=== PATIENT | male | born 1980 | race Two or more races ===

== ENCOUNTER 2022-01-08 17:23 | Inpatient (IN) | payer MEDICAID ==
[~2022-01-08] VITALS: Ht 167.6 cm; Wt 81.8 kg
[2022-01-08] MEDS ORDERED: ondansetron/PF 4mg/2ml inj IV ONE (17:35)
[2022-01-08 17:54] LABS: CLARITY,URINE CLEAR (Clear); COLOR,URINE YELLOW (Yellow); GLUCOSE, URINE NEGATIVE (Neg); KETONES,URINE TRACE mg/dl (Neg); LEUKOCYTE ESTERASE ,URINE NEGATIVE (Neg); NITRITES, URINE NEGATIVE (Neg); OCCULT BLOOD,URINE SMALL (Neg); PH,URINE 5.5 (4.8-8.0); PROTEIN,URINE 100 mg/dl (Neg); UROBILINOGEN,URINE 0.2 E.U/dL (0.2-1.0)
[2022-01-08 17:54] LABS: BASOPHILS # (AUTO) 0.1 X10'3 (0-0.2); EOSINOPHILS % (AUTO) 0.8 % (0-6); HEMATOCRIT 44.7 % (42.0-52.0); HEMOGLOBIN 15.1 g/dl (14.0-17.9); LYMPHOCYTES # (AUTO) 1.7 X10'3 (1.1-4.8); MEAN CORPUSCULAR HEMOGLOBIN 31.2 PG (27.0-31.0); MEAN CORPUSCULAR HGB CONC 33.8 g/dL (33.0-36.5); MEAN CORPUSCULAR VOLUME 92.4 FL (78-98); MEAN PLATELET VOLUME 7.3 FL (7.4-10.4); MONOCYTES # (AUTO) 0.6 X10'3 (0-0.9); MONOCYTES % (AUTO) 10.3 % (2-12); NEUTROPHILS # (AUTO) 3.3 X10'3 (1.8-7.7); NEUTROPHILS % (AUTO) 57.9 % (42-75); PLATELET COUNT 198 X10'3 (140-440); RED BLOOD COUNT 4.84 X10'6 (4.70-6.10); RED CELL DISTRIBUTION WIDTH 15.2 % (11.5-14.5); WHITE BLOOD COUNT 5.7 X10'3 (4.5-11.0)
[2022-01-08 17:58] LABS: UA COLLECTION TYPE FOLEY CATH
[2022-01-08 17:59] LABS: BACTERIA,URINE NONE SEEN /HPF (Neg); MUCUS STRANDS FEW /LPF (Neg); RBC,URINE 0-2 /HPF (0-2); SQUAMOUS EPITHELIAL CELL,UR NONE SEEN /LPF (FEW); WBC,URINE 0-4 /HPF (0-4)
[2022-01-08 18:08] LABS: ALANINE AMINOTRANSFERASE 118 U/L (12-78); ALBUMIN 3.6 G/DL (3.4-5.0); ALBUMIN/GLOBULIN RATIO 0.9 (1.1-1.5); ALKALINE PHOSPHATASE 140 IU/L (46-116); ANION GAP 8 (8-16); ASPARTATE AMINO TRANSFERASE 124 U/L (10-37); BILIRUBIN,TOTAL 0.7 MG/DL (0.1-1.0); BLOOD UREA NITROGEN 9 MG/DL (7-18); CALCIUM 7.6 MG/DL (8.5-10.1); CHLORIDE 108 MMOL/L (99-107); GLUCOSE 139 MG/DL (70-104); POTASSIUM 3.4 MMOL/L (3.5-5.1); SODIUM 145 MMOL/L (135-145); TOTAL CARBON DIOXIDE 28.6 MMOL/L (24-32); TOTAL PROTEIN 7.6 G/DL (6.4-8.2); eGFR > 90 ML/MIN
[2022-01-08 18:08] LABS: URINE AMPHETAMINE SCREEN NEGATIVE (Neg); URINE BARBITUATE SCREEN NEGATIVE (Neg); URINE BENZODIAZEPINES SCREEN NEGATIVE (Neg); URINE CANNABINOID SCREEN POSITIVE (Neg); URINE COCAINE SCREEN NEGATIVE (Neg); URINE METHADONE SCREEN NEGATIVE (Neg); URINE OPIATE SCREEN NEGATIVE (Neg); URINE PHENCYCLIDINE SCREEN NEGATIVE (Neg)
[2022-01-08] MEDS ORDERED: magnesium Cl slow-release 64mg tablet PO PRN (19:30)
[2022-01-08] MEDS ORDERED: LORazepam 2 mg/ml vial IV PRN (19:30)
[2022-01-08] MEDS ORDERED: acetaminophen 325mg tablet PO PRN ×2 (19:30)
[2022-01-08] MEDS ORDERED: haloperidol 5mg tablet PO PRN (19:30)
[2022-01-08] MEDS ORDERED: POTASSIUM BICARB 20meq eff tab 20 MEQ TABLET.EFF PO PRN (19:30)
[2022-01-08] MEDS ORDERED: potassium CL 10mEq/100ml bag 100 ML IV PRN (19:30)
[2022-01-08] MEDS ORDERED: magnesium 4gm in 100ml NS 100 ML IV PRN (19:30)
[2022-01-08] MEDS ORDERED: magnesium 2GM in 50ml NS 50 ML IV PRN (19:30)
[2022-01-08] MEDS ORDERED: haloperidol lactate 5mg/ml inj IM PRN (19:30)
[2022-01-08] MEDS ORDERED: ondansetron/PF 4mg/2ml inj IV PRN (19:30)
[2022-01-08] MEDS: folic acid 1mg tablet PO SCH (19:38)
[2022-01-08] MEDS: thiamine 100mg tablet PO SCH (19:39)
[2022-01-08] MEDS: K and/or MAG REPLACEMENT MC SCH (20:00)
[2022-01-08] MEDS: normal saline 1000ml 1,000 ML IV SCH (20:00)
[2022-01-08] MEDS ORDERED: temazepam 15mg capsule PO PRN (21:00)
[2022-01-08] MEDS: heparin, porcine 5000 units/ml vial SQ SCH (23:26)
[2022-01-09] MEDS: normal saline 1000ml 1,000 ML IV SCH ×2 (06:32→16:06)
[2022-01-09] MEDS: multivitamins, therapeutics tablet PO SCH (07:55)
[2022-01-09] MEDS: thiamine 100mg tablet PO SCH (07:58)
[2022-01-09] MEDS: heparin, porcine 5000 units/ml vial SQ SCH ×2 (08:00→20:06)
[2022-01-09] MEDS: K and/or MAG REPLACEMENT MC SCH ×2 (08:00→20:00)
[2022-01-09] MEDS: folic acid 1mg tablet PO SCH (08:00)
[2022-01-09 09:23] LABS: BASOPHILS % (AUTO) 0.7 % (0-1); EOSINOPHILS # (AUTO) 0.1 X10'3 (0-0.9); HEMATOCRIT 42.5 % (42.0-52.0); HEMOGLOBIN 14.4 g/dl (14.0-17.9); LYMPHOCYTES # (AUTO) 1.5 X10'3 (1.1-4.8); LYMPHOCYTES % (AUTO) 22.3 % (21-51); MEAN CORPUSCULAR HGB CONC 33.9 g/dL (33.0-36.5); MEAN CORPUSCULAR VOLUME 91.6 FL (78-98); MEAN PLATELET VOLUME 8.2 FL (7.4-10.4); MONOCYTES # (AUTO) 0.6 X10'3 (0-0.9); MONOCYTES % (AUTO) 9.2 % (2-12); NEUTROPHILS # (AUTO) 4.5 X10'3 (1.8-7.7); NEUTROPHILS % (AUTO) 66.8 % (42-75); PLATELET COUNT 187 X10'3 (140-440); RED BLOOD COUNT 4.64 X10'6 (4.70-6.10); RED CELL DISTRIBUTION WIDTH 15.3 % (11.5-14.5); WHITE BLOOD COUNT 6.8 X10'3 (4.5-11.0)
[2022-01-09 09:33] LABS: ALANINE AMINOTRANSFERASE 105 U/L (12-78); ALBUMIN 3.3 G/DL (3.4-5.0); ALBUMIN/GLOBULIN RATIO 0.9 (1.1-1.5); ALKALINE PHOSPHATASE 119 IU/L (46-116); AMYLASE 80 U/L (25-115); ANION GAP 13 (8-16); ASPARTATE AMINO TRANSFERASE 106 U/L (10-37); BILIRUBIN,TOTAL 0.9 MG/DL (0.1-1.0); BLOOD UREA NITROGEN 8 MG/DL (7-18); BUN/CREATININE RATIO 12.1 (5.4-32.0); CALCIUM 8.2 MG/DL (8.5-10.1); CHLORIDE 105 MMOL/L (99-107); CREATININE 0.66 MG/DL (0.60-1.10); GLUCOSE 68 MG/DL (70-104); LIPASE 226 U/L (73-393); MAGNESIUM 1.8 MG/DL (1.5-2.4); PHOSPHORUS 2.3 MG/DL (2.3-4.5); POTASSIUM 3.6 MMOL/L (3.5-5.1); SODIUM 145 MMOL/L (135-145); TOTAL PROTEIN 7.1 G/DL (6.4-8.2); eGFR > 90 ML/MIN
[2022-01-09] MEDS ORDERED: LISI10TA27 PO (11:19)
[2022-01-09] MEDS ORDERED: ATOR10TA70 PO (11:19)
--- NOTE | 2022-01-10 00:01 | NUR ---
Patient in room ED 5. I have received report from EUGENE WOODRUFF RN and had the opportunity to ask questions and assume patient care. Addendum: 01/10/22 at 0002 by Susan Mccrary RN Amended: Links added.
--- NOTE | 2022-01-10 00:05 | NUR ---
pt arriived to the floor in wheel chair tolerated well. vitals taken.
[2022-01-10 00:15] VITALS: BP 165/93
[2022-01-10] MEDS: normal saline 1000ml 1,000 ML IV SCH ×3 (00:33→21:30)
[2022-01-10] MEDS: LORazepam 1 MG tablet PO PRN ×2 (00:33→20:42)
[2022-01-10 02:00] VITALS: BP 167/98
[2022-01-10 06:28] LABS: BASOPHILS % (AUTO) 0.7 % (0-1); EOSINOPHILS % (AUTO) 1.2 % (0-6); HEMOGLOBIN 14.6 g/dl (14.0-17.9); LYMPHOCYTES # (AUTO) 1.2 X10'3 (1.1-4.8); MEAN CORPUSCULAR HEMOGLOBIN 31.4 PG (27.0-31.0); MEAN CORPUSCULAR HGB CONC 34.8 g/dL (33.0-36.5); MEAN CORPUSCULAR VOLUME 90.3 FL (78-98); MEAN PLATELET VOLUME 8.1 FL (7.4-10.4); MONOCYTES # (AUTO) 0.7 X10'3 (0-0.9); MONOCYTES % (AUTO) 18.6 % (2-12); NEUTROPHILS # (AUTO) 1.8 X10'3 (1.8-7.7); NEUTROPHILS % (AUTO) 47.5 % (42-75); PLATELET COUNT 175 X10'3 (140-440); RED BLOOD COUNT 4.65 X10'6 (4.70-6.10); RED CELL DISTRIBUTION WIDTH 14.5 % (11.5-14.5); WHITE BLOOD COUNT 3.9 X10'3 (4.5-11.0)
--- NOTE | 2022-01-10 06:33 | NUR ---
Problems reprioritized. Patient report given, questions answered & plan of care reviewed with BRIE WEAVER. Addendum: 01/10/22 at 0633 by Susan Mccrary RN Amended: Links added.
[2022-01-10 06:45] LABS: ALANINE AMINOTRANSFERASE 77 U/L (12-78); ALBUMIN 3.1 G/DL (3.4-5.0); ALBUMIN/GLOBULIN RATIO 0.8 (1.1-1.5); ALKALINE PHOSPHATASE 110 IU/L (46-116); AMYLASE 76 U/L (25-115); ANION GAP 7 (8-16); ASPARTATE AMINO TRANSFERASE 66 U/L (10-37); BILIRUBIN,TOTAL 2.3 MG/DL (0.1-1.0); BLOOD UREA NITROGEN 7 MG/DL (7-18); BUN/CREATININE RATIO 12.5 (5.4-32.0); CALCIUM 8.4 MG/DL (8.5-10.1); CHLORIDE 101 MMOL/L (99-107); CREATININE 0.56 MG/DL (0.60-1.10); GLUCOSE 87 MG/DL (70-104); LIPASE 286 U/L (73-393); MAGNESIUM 1.6 MG/DL (1.5-2.4); PHOSPHORUS 2.3 MG/DL (2.3-4.5); POTASSIUM 3.3 MMOL/L (3.5-5.1); SODIUM 137 MMOL/L (135-145); TOTAL CARBON DIOXIDE 28.8 MMOL/L (24-32); TOTAL PROTEIN 6.8 G/DL (6.4-8.2); eGFR > 90 ML/MIN
[2022-01-10] MEDS: K and/or MAG REPLACEMENT MC SCH ×2 (08:00→20:00)
[2022-01-10] MEDS: lisinopril 10 MG tablet PO SCH (09:24)
[2022-01-10] MEDS: multivitamins, therapeutics tablet PO SCH (09:24)
[2022-01-10] MEDS: thiamine 100mg tablet PO SCH (09:24)
[2022-01-10] MEDS: folic acid 1mg tablet PO SCH (09:24)
[2022-01-10] MEDS: atorvastatin 10mg tablet PO SCH (09:24)
[2022-01-10] MEDS: heparin, porcine 5000 units/ml vial SQ SCH ×2 (09:25→20:41)
[2022-01-10] MEDS: POTASSIUM BICARB 20meq eff tab 20 MEQ TABLET.EFF PO PRN ×2 (09:25→22:12)
[2022-01-10 10:04] LABS: TOTAL CELLS COUNTED 100
[2022-01-10 10:05] LABS: LARGE PLATELETS FEW; PLATELET ESTIMATE NORMAL
[2022-01-10 18:00] VITALS: BP 145/101
--- NOTE | 2022-01-10 19:14 | NUR ---
Patient in room U 3023. I have received report from BRIE WEAVER and had the opportunity to ask questions and assume patient care. Addendum: 01/10/22 at 1915 by Susan Mccrary RN Amended: Links added.
--- NOTE | 2022-01-10 19:56 | NUR ---
Pt aox4, sleeping on and off throughout the day. IVF infusing. Pt with good appetite for meals. denies pain, numbness, tingling. all pulses palp. skin CDI. denies hallucinations visually and auditorily. denies SI. no tremors noted and denies anxiety. some hyperness noted. BG check wnl. effer k given 40mEq. all needs met in real time. Pt wants to go home and almost left AMA. pt educated on benefits of staying and agreeable to stay one more night. friends/visitors at bedside encouraging additional night stay as well. All needs met in real time.
[2022-01-10] MEDS ORDERED: atorvastatin 10mg tablet PO SCH (20:00)
[2022-01-10] MEDS ORDERED: lisinopril 10 MG tablet PO SCH (20:00)
[2022-01-10 22:00] VITALS: BP 136/92
--- NOTE | 2022-01-11 | NUR ---
resting without changes.
[2022-01-11 02:00] VITALS: BP 92/37
[2022-01-11] MEDS: normal saline 1000ml 1,000 ML IV SCH (03:54)
[2022-01-11 06:25] LABS: BASOPHILS % (AUTO) 0.8 % (0-1); EOSINOPHILS # (AUTO) 0.1 X10'3 (0-0.9); EOSINOPHILS % (AUTO) 1.4 % (0-6); HEMATOCRIT 43.2 % (42.0-52.0); HEMOGLOBIN 14.7 g/dl (14.0-17.9); LYMPHOCYTES # (AUTO) 1.3 X10'3 (1.1-4.8); LYMPHOCYTES % (AUTO) 33.9 % (21-51); MEAN CORPUSCULAR VOLUME 91.1 FL (78-98); MEAN PLATELET VOLUME 8.4 FL (7.4-10.4); MONOCYTES # (AUTO) 0.6 X10'3 (0-0.9); MONOCYTES % (AUTO) 14.8 % (2-12); NEUTROPHILS # (AUTO) 1.9 X10'3 (1.8-7.7); NEUTROPHILS % (AUTO) 49.1 % (42-75); PLATELET COUNT 166 X10'3 (140-440); RED BLOOD COUNT 4.74 X10'6 (4.70-6.10); RED CELL DISTRIBUTION WIDTH 14.5 % (11.5-14.5); WHITE BLOOD COUNT 3.8 X10'3 (4.5-11.0)
[2022-01-11 06:40] LABS: ALANINE AMINOTRANSFERASE 78 U/L (12-78); ALBUMIN/GLOBULIN RATIO 0.8 (1.1-1.5); ALKALINE PHOSPHATASE 117 IU/L (46-116); AMYLASE 99 U/L (25-115); ANION GAP 5 (8-16); ASPARTATE AMINO TRANSFERASE 66 U/L (10-37); BILIRUBIN,TOTAL 1.5 MG/DL (0.1-1.0); BLOOD UREA NITROGEN 9 MG/DL (7-18); BUN/CREATININE RATIO 14.1 (5.4-32.0); CALCIUM 8.5 MG/DL (8.5-10.1); CHLORIDE 105 MMOL/L (99-107); CREATININE 0.64 MG/DL (0.60-1.10); GLUCOSE 89 MG/DL (70-104); LIPASE 365 U/L (73-393); MAGNESIUM 1.8 MG/DL (1.5-2.4); PHOSPHORUS 3.5 MG/DL (2.3-4.5); POTASSIUM 3.7 MMOL/L (3.5-5.1); SODIUM 139 MMOL/L (135-145); TOTAL CARBON DIOXIDE 29.4 MMOL/L (24-32); TOTAL PROTEIN 6.9 G/DL (6.4-8.2); eGFR > 90 ML/MIN
--- NOTE | 2022-01-11 06:49 | NUR ---
Problems reprioritized. Patient report given, questions answered & plan of care reviewed with BRIE COLE. Addendum: 01/11/22 at 0650 by Susan Mccrary RN Amended: Links added.
[2022-01-11 06:51] VITALS: BP 124/86
[2022-01-11] MEDS: K and/or MAG REPLACEMENT MC SCH (07:59)
[2022-01-11 08:00] VITALS: BP_SYST 124
[2022-01-11] MEDS: lisinopril 10 MG tablet PO SCH (08:00)
[2022-01-11] MEDS: folic acid 1mg tablet PO SCH (08:00)
[2022-01-11] MEDS: multivitamins, therapeutics tablet PO SCH (08:00)
[2022-01-11] MEDS: atorvastatin 10mg tablet PO SCH (08:00)
[2022-01-11] MEDS: thiamine 100mg tablet PO SCH (08:01)
[2022-01-11] MEDS: heparin, porcine 5000 units/ml vial SQ SCH (08:01)
[2022-01-11] MEDS ORDERED: thiamine tablet PO (11:32)
[2022-01-11] MEDS ORDERED: MULT-25 PO (11:32)
[2022-01-11] MEDS ORDERED: FOLI1TAB27 PO (11:32)
--- NOTE | 2022-01-11 13:40 | NUR ---
PT DISCHARGED IN STABLE CONDITION. LEFT FACILITY IN PRIVATE VEHICLE. IV DC CANULA INTACT. ALL BELONGINGS IN HAND. FOLLOW UP INSTRUCTIONS GIVEN, ALL QUESTIONS ANSWERED.
== END 2022-01-11 13:35 | disposition home or self-care (01) | DRG 812 ==
LOC: ER 17:24 → EDBD 17:24 → ED HOLD 19:31 → PCU 3S 01-09 23:58
PROVIDERS: ADMIT Internal Medicine; ATTEND Internal Medicine
DX: T40.411A Poisoning by fentanyl or fentanyl analogs, accidental (unintentional), initial encounter (principal); G92.9 Unspecified toxic encephalopathy; F10.231 Alcohol dependence with withdrawal delirium; R74.01 Elevation of levels of liver transaminase levels; I10 Essential (primary) hypertension; E78.5 Hyperlipidemia, unspecified; F10.220 Alcohol dependence with intoxication, uncomplicated; E87.6 Hypokalemia; R74.8 Abnormal levels of other serum enzymes; Z88.6 Allergy status to analgesic agent; Y92.89 Other specified places as the place of occurrence of the external cause; Z71.51 Drug abuse counseling and surveillance of drug abuser
CPT/HCPCS: 36415; 71045; 80053; 80305; 80320; 81001; 82150; 82948; 83690; 83735; 84100; 85007; 85025; 85610; 87081; 94799; 97161; 97530; 99285; G0378; J1644; J2060; J2405; J7030; J7050

== ENCOUNTER 2022-03-27 14:02 | Emergency (ER) | payer MEDICAID ==
[~2022-03-27] VITALS: Ht 172.7 cm; Wt 80.0 kg
[~2022-03-27 14:02] MED LIST: ATOR10TA70 PO; FOLI1TAB27 PO; LISI10TA27 PO; MULT-25 PO; thiamine tablet PO
[2022-03-27 14:29] VITALS: BP 124/76
== END 2022-03-27 18:18 | disposition left against medical advice (07) ==
LOC: ER 14:03
DX: R07.0 Pain in throat (principal); Z53.21 Procedure and treatment not carried out due to patient leaving prior to being seen by health care provider

== ENCOUNTER 2023-01-21 22:44 | Emergency (ER) | payer MEDICAID ==
[~2023-01-21] VITALS: Ht 172.7 cm; Wt 65.6 kg
[2023-01-21 23:50] VITALS: BP 125/95; PULSE 98; RESP 14; TEMP 98.7; O2SAT 98
== END 2023-01-22 02:25 | disposition left against medical advice (07) ==
LOC: ER 22:45
DX: Z76.0 Encounter for issue of repeat prescription (principal); Z53.21 Procedure and treatment not carried out due to patient leaving prior to being seen by health care provider
CPT/HCPCS: 99281

== ENCOUNTER 2023-06-25 20:34 | Emergency (ER) | payer MEDICAID ==
[~2023-06-25] VITALS: Ht 172.7 cm; Wt 78.5 kg
[2023-06-25 21:04] VITALS: BP 156/109; PULSE 110; RESP 16; TEMP 98.4; O2SAT 100
[2023-06-25] MEDS ORDERED: MUPI30OI5 TOP (21:20)
[2023-06-25] MEDS ORDERED: CEPH-585 PO (21:20)
== END 2023-06-25 21:32 | disposition home or self-care (01) ==
LOC: ER 20:35
DX: T21.14XA Burn of first degree of lower back, initial encounter (principal); T79.9XXA Unspecified early complication of trauma, initial encounter; X08.8XXA Exposure to other specified smoke, fire and flames, initial encounter; Y93.89 Activity, other specified; Y92.89 Other specified places as the place of occurrence of the external cause; Y99.8 Other external cause status
CPT/HCPCS: 99283

== ENCOUNTER 2023-12-07 20:22 | Emergency (ER) | payer MEDICAID ==
[~2023-12-07] VITALS: Ht 172.7 cm; Wt 70.5 kg
[~2023-12-07 20:22] MED LIST changes: +MUPI30OI5 TOP
[2023-12-07 21:21] VITALS: BP 146/85; PULSE 86; RESP 18; TEMP 98; O2SAT 97
== END 2023-12-07 21:23 ==
LOC: ER 20:22
DX: F10.129 Alcohol abuse with intoxication, unspecified (principal); Z88.6 Allergy status to analgesic agent; Z79.899 Other long term (current) drug therapy; Y90.9 Presence of alcohol in blood, level not specified
CPT/HCPCS: 99283

== ENCOUNTER 2023-12-09 20:51 | Emergency (ER) | payer MEDICAID ==
[~2023-12-09] VITALS: Ht 172.7 cm; Wt 71.4 kg
[2023-12-09 21:02] VITALS: TEMP 97.7
[2023-12-09 23:37] LABS: BASOPHILS # (AUTO) 0.1 X10'3 (0-0.2); BASOPHILS % (AUTO) 1.3 % (0-1); EOSINOPHILS % (AUTO) 0.7 % (0-6); HEMATOCRIT 41.3 % (42.0-52.0); HEMOGLOBIN 13.9 g/dl (14.0-17.9); LYMPHOCYTES # (AUTO) 1.7 X10'3 (1.1-4.8); MEAN CORPUSCULAR HGB CONC 33.7 g/dL (33.0-36.5); MONOCYTES # (AUTO) 0.5 X10'3 (0-0.9); MONOCYTES % (AUTO) 11.8 % (2-12); NEUTROPHILS # (AUTO) 1.9 X10'3 (1.8-7.7); NEUTROPHILS % (AUTO) 45.2 % (42-75); PLATELET COUNT 155 X10'3 (140-440); RED BLOOD COUNT 4.49 X10'6 (4.70-6.10); RED CELL DISTRIBUTION WIDTH 14.5 % (11.5-14.5); WHITE BLOOD COUNT 4.2 X10'3 (4.5-11.0)
[2023-12-09 23:51] LABS: ALBUMIN 3.5 G/DL (3.4-5.0); ANION GAP 10 (8-16); BLOOD UREA NITROGEN 10 MG/DL (7-18); CALCIUM 8.4 MG/DL (8.5-10.1); CHLORIDE 102 MMOL/L (99-107); CREATININE 0.77 MG/DL (0.60-1.10); GLUCOSE 86 MG/DL (70-104); LIPASE 141 U/L (16-77); MAGNESIUM 1.4 MG/DL (1.5-2.4); SODIUM 143 MMOL/L (135-145); TOTAL CARBON DIOXIDE 31.4 MMOL/L (24-32); eCRCL 117 ML/MIN; eGFR > 90 ML/MIN
[2023-12-09 23:53] LABS: POTASSIUM 2.9 MMOL/L (3.5-5.1)
[2023-12-09 23:54] LABS: ETHANOL 370 MG/DL (<10)
[2023-12-10] MEDS: normal saline 1000ml 1,000 ML IV ONE (01:16)
[2023-12-10] MEDS: normal saline 1000ML IV soln IVB ONE ×2 (01:18→06:00)
[2023-12-10] MEDS: potassium CL 10mEq/100ml bag 100 ML IV ONE ×2 (01:56→05:24)
[2023-12-10] MEDS: magnesium sulf-water 2g/50mL 50 ML IV ONE ×2 (02:11→05:22)
[2023-12-10] MEDS: magnesium oxide 400mg tablet PO ONE (05:06)
[2023-12-10] MEDS: potassium Cl 20 mEq SR tablet PO ONE (05:07)
[2023-12-10 05:16] LABS: BILIRUBIN,URINE NEGATIVE (Neg); CLARITY,URINE CLEAR (Clear); COLOR,URINE STRAW (Yellow); GLUCOSE, URINE NEGATIVE (Neg); KETONES,URINE NEGATIVE (Neg); LEUKOCYTE ESTERASE ,URINE NEGATIVE (Neg); NITRITES, URINE NEGATIVE (Neg); OCCULT BLOOD,URINE TRACE-INTACT (Neg); PROTEIN,URINE NEGATIVE (Neg); UROBILINOGEN,URINE 0.2 E.U/dL (0.2-1.0)
[2023-12-10 05:27] LABS: UA COLLECTION TYPE VOIDED
[2023-12-10 05:30] LABS: BACTERIA,URINE FEW /HPF (Neg); RBC,URINE 0-2 /HPF (0-2); SQUAMOUS EPITHELIAL CELL,UR NONE SEEN /LPF (FEW); WBC,URINE 0-4 /HPF (0-4)
[2023-12-10] MEDS ORDERED: LISI5TAB22 PO (07:19)
[2023-12-10] MEDS: lisinopril 5mg tablet PO ONE (07:23)
[2023-12-10 07:27] VITALS: BP 148/88; PULSE 74; RESP 18; O2SAT 98
[2023-12-10 07:30] LABS: ALANINE AMINOTRANSFERASE 62 U/L (12-78); ALBUMIN/GLOBULIN RATIO 0.8 (1.1-1.5); ALKALINE PHOSPHATASE 150 IU/L (46-116); ASPARTATE AMINO TRANSFERASE 118 U/L (10-37); BILIRUBIN,TOTAL 0.9 MG/DL (0.1-1.0); TOTAL PROTEIN 8.1 G/DL (6.4-8.2)
[2023-12-10 08:26] LABS: BILIRUBIN,DIRECT < 0.1 MG/DL (0-0.3)
== END 2023-12-10 07:31 | disposition home or self-care (01) ==
LOC: ER 20:51
DX: F10.129 Alcohol abuse with intoxication, unspecified (principal); E87.6 Hypokalemia; E83.42 Hypomagnesemia; I10 Essential (primary) hypertension; F12.90 Cannabis use, unspecified, uncomplicated; F15.90 Other stimulant use, unspecified, uncomplicated; Z79.899 Other long term (current) drug therapy; Z88.6 Allergy status to analgesic agent; Y90.9 Presence of alcohol in blood, level not specified
CPT/HCPCS: 36415; 80048; 80076; 80320; 81001; 83690; 83735; 85025; 96361; 96365; 96366; 96368; 99285; J3480; J7030